=== PATIENT | female | born 1975 | race Caucasian/White ===

== ENCOUNTER 2016-08-12 09:55 | Observation (INO) | payer OTHER ==
[2016-08-12] VITALS (27 sets, daily range): BP systolic 83–124; BP diastolic 52–77; PULSE 75–99; RESP 11–20; Ht 134.6 cm; Wt 58.1 kg
[~2016-08-12] VITALS: Ht 134.6 cm; Wt 58.1 kg
[~2016-08-12 09:55] MED LIST: SOD CHLORIDE 0.9% 1,000 ML IV SCH; VANCOMYCIN 1 GM in NS 250 ML IVPB SCH
[2016-08-12] MEDS ORDERED: morphine 2 MG INJ IV PRN (11:30)
[2016-08-12] MEDS ORDERED: ACETAMINOPHEN 1000MG/100ML IV 100 ML IVPB PRN (11:30)
[2016-08-12] MEDS ORDERED: ONDANSETRON 4 MG INJ IV PRN ×2 (11:30→14:00)
[2016-08-12 11:34] LABS: ADD SCAN DIFF NO
[2016-08-12 11:45] LABS: BASOPHILS % 0.2 % (0.0-2.0); EOSINOPHILS # 0.1 10^3/ul (0.0-0.5); EOSINOPHILS % 0.9 % (0.0-7.0); HEMATOCRIT 40.6 % (37.0-47.0); HEMOGLOBIN 12.9 g/dl (12.0-16.0); LYMPHOCYTES # 2.1 10^3/ul (0.8-2.9); LYMPHOCYTES % 23.1 % (15.0-51.0); MEAN CORPUSCULAR HEMOGLOBIN 23.5 pg (29.0-33.0); MEAN CORPUSCULAR HGB CONC 31.8 g/dl (32.0-37.0); MEAN CORPUSCULAR VOLUME 74.1 fl (82.0-101.0); MONOCYTE # 0.5 10^3/ul (0.3-0.9); MONOCYTES % 5.5 % (0.0-11.0); NEUTROPHIL # 6.5 10^3/ul (1.6-7.5); PLATELET COUNT 270 10^3/UL (140-415); RED BLOOD COUNT 5.48 10^6/ul (4.20-5.40); RED CELL DISTRIBUTION WIDTH 13.4 % (11.5-14.5); WHITE BLOOD COUNT 9.3 10^3/ul (4.8-10.8)
[2016-08-12 12:03] LABS: ALBUMIN 4.6 g/dl (3.3-4.9); ALBUMIN/GLOBULIN RATIO 1.39; BILIRUBIN,INDIRECT 0.4 mg/dl (0-1.1); BILIRUBIN,TOTAL 0.4 mg/dl (0.2-1.3); TOTAL PROTEIN 7.9 g/dl (6.1-8.1)
[2016-08-12 12:23] LABS: INR 1.01; PROTIME 13.3 Sec (12.2-14.2)
[2016-08-12 12:28] LABS: CALCIUM 9.1 mg/dl (8.4-10.2); CREATININE 0.56 mg/dl (0.44-1.00); POTASSIUM 3.7 mmol/L (3.5-5.1)
[2016-08-12 12:36] LABS: PARTIAL THROMBOPLASTIN TIME 27.8 Sec (25.0-35.0)
[2016-08-12] MEDS ORDERED: ISOSULFAN BLUE 1% 5 ML INJ SC ONE ×2 (12:59→13:56)
[2016-08-12] MEDS ORDERED: PROPOFOL 20 ML ONE (13:35)
[2016-08-12] MEDS ORDERED: MIDAZOLAM 1 MG/ML 2 ML INJ ONE (13:35)
[2016-08-12] MEDS ORDERED: ONDANSETRON 4 MG INJ ONE (13:47)
[2016-08-12] MEDS ORDERED: DEXAMETHASONE 4 MG/ML 1 ML INJ ONE (13:47)
[2016-08-12] MEDS ORDERED: FAMOTIDINE 20 MG INJ ONE (13:47)
[2016-08-12] MEDS ORDERED: PROCHLORPERAZINE 10 MG INJ IV PRN (14:00)
[2016-08-12] MEDS ORDERED: HYDROmorphONE (0.2 MG/ML) 10ML SYG IV PRN (14:00)
[2016-08-12] MEDS ORDERED: LIDOCAINE 1% (MDV) 20 ML INJ ONE (14:00)
[2016-08-12] MEDS ORDERED: DIPHENHYDRAMINE 50 MG INJ IV PRN (14:00)
[2016-08-12] MEDS ORDERED: MEPERIDINE 25 MG INJ IV PRN (14:00)
[2016-08-12] MEDS: HYDROmorphONE (0.2 MG/ML) 10ML SYG IV PRN ×3 (15:36→16:00)
--- NOTE | 2016-08-12 16:20 | OPR ---
DATE OF OPERATION: 08/12/2016 PREOPERATIVE DIAGNOSIS: Invasive cancer, left breast. POSTOPERATIVE DIAGNOSIS: Invasive cancer, left breast. OPERATION PERFORMED: Left partial mastectomy and axillary dissection utilizing sentinel lymph node technique. ANESTHESIA: General. ANESTHESIOLOGIST: BARBIE MELGAR DO. SURGEON: Maury Macario MD ENERGY TRADER: J Carlos Garcia MD INDICATIONS FOR PROCEDURE: The patient is an unfortunate 41-year-old female who presented with a re latively large mass at 7 o'clock in location of her left breast. Workup including biopsy confirmed an invasive cancer. She was counseled as to the risks versus benefits of left partial mastectomy an d axillary dissection utilizing sentinel lymph node techniques. She consented and was scheduled for surgery. DESCRIPTION OF PROCEDURE: The patient was brought to the operating theater, placed under general en dotracheal tube anesthesia. The left breast and axillary region was prepped and draped in usual radha rile fashion. Approximately 4 mL of 1% Lymphazurin blue dye was then injected peritumorally. The b reast was gently massaged for approximately 12 minutes. Subsequently, a 4 cm incision was made in t he left axillary hairline and subcutaneous tissue was dissected with cautery down through the clavip ectoral fascia. Dye-stained lymphatic was identified and traced to a partially blue stained sentine l node. Dr. Macario identified several other nodes in this area that were somewhat enlarged. Therefo re, decision was made to proceed with level dissection with blunt dissection along the chest wall. The long thoracic nerve was identified and kept out of harm's way. More superiorly, the axillary ve in was identified and dissected from medial to lateral and kept out of harm's way. Thoracodorsal ne urovascular bundle was also identified and kept out of harm's way. Node bearing tissue between the long thoracic nerve and the thoracodorsal nerves was then resected using the LigaSure device. Final connective tissue attachments were then transected with cautery. Specimen was evaluated by attendi ng pathologist, Dr. Rui Lees. He evaluated the sentinel nodes. There was no definite eviden ce of metastatic disease. Therefore, decision was made to not take additional nodes. Dr. Macario pa lpated the axilla and there were no suspicious nodes left. The wound was irrigated. Minimal bleedi ng was controlled with cautery and then a #10 flat Davis-Portillo drain was brought through the left mid axillary line, cut to size and laid within the axilla. It was secured in place with 2-0 nylon s uture in standard fashion. The skin was then reapproximated with 4-0 Vicryl suture in subcuticular fashion. Attention was then directed to performing the partial mastectomy. A periareolar incision was made f rom approximately the 4 o'clock location through the 7 o'clock location to the 10 o'clock location w ith 15 blade scalpel. Subcutaneous tissue was dissected with cautery. The skin edges were then hamlet vated with skin hooks and wide circumferential dissection of the tissue associated with the palpable mass took place, taking great care to ensure adequate margin. The specimen was removed and sent fo permanent pathologic analysis. The wound was then irrigated. Minimal bleeding was controlled wit h cautery. Skin was reapproximated with a deep dermal layer of 4-0 Vicryl sutures in interrupted fa shion, followed by final skin approximation with 5-0 PDS suture in subcuticular fashion. Dermabond was then applied to both wounds. The patient tolerated procedure well. Estimated blood loss was 30 mL. There were no complications and the patient was transported in stable condition to the recover y room. Dictated By: MAURY GONZALEZ/NEVIN Conf#: [id number] DID#: [id number]
--- NOTE | 2016-08-12 17:03 | HP ---
DATE OF ADMISSION: 08/12/2016 HISTORY OF PRESENT ILLNESS: The patient is a 41-year-old female who was diagnosed with invasive dre aidan carcinoma of the left breast which initially revealed breast mass with a 1.8 cm mass seen in the inferior left breast with subsequent biopsy which revealed invasive cancer. The patient was evalua chery by Dr. Macario in general surgery consultation. Patient was brought to the hospital and underwent left partial mastectomy with axillary dissection utilizing sentinel lymph node technique. Postoper atively, the patient experienced mild dizziness and moderate pain and the patient will be admitted f or further evaluation and management. PAST MEDICAL HISTORY: Positive for anxiety. Patient denies any other medical problems. PAST SURGICAL HISTORY: Status post cholecystectomy. FAMILY HISTORY: Patient denies any family history of breast or gynecological cancer. SOCIAL HISTORY: Patient lives at home with her family. The patient denies any tobacco use, denies any alcohol use, denies any illicit drug use. ALLERGIES: THE PATIENT IS ALLERGIC TO PENICILLIN AND ASPIRIN. HOME MEDICATIONS: No active scripts. REVIEW OF SYSTEMS: A 12-point review of systems is negative unless what mentioned in the HPI. PHYSICAL ASSESSMENT GENERAL: Well-developed, well-nourished female in no acute distress. VITAL SIGNS: Temperature is 98.9, pulse is 96, blood pressure is 111/68, respiratory rate 16, oxyge n saturation 99% on 2 liters nasal cannula. HEENT: Head is atraumatic, normocephalic. Pupils equal, round, reactive to light and accommodation . Oral mucosa is pink and moist. NECK: Supple, no cervical lymphadenopathy, no thyromegaly. CHEST: Lungs clear bilaterally. There is no rhonchi, wheezes results noted. NEUROLOGIC: Patient is status post surgery with a dry, clean and intact dressing. CARDIOVASCULAR: Normal S1, S2. No murmurs, gallops, clicks, rubs noted. ABDOMEN: Round, soft, nondistended, nontender. Bowel sounds present. No guarding, no rebound tend erness. EXTREMITIES: No edema, clubbing, cyanosis. Pulses equal bilaterally 2+. SKIN: There is no rash, petechiae noted. NEUROLOGICAL: The patient is awake, alert and oriented x3. No focal deficits noted. LABORATORY DATA: On admission, CBC: White blood cells 9.3, hemoglobin 12.9, hematocrit 40.6, plate lets 270. Chemistry: Sodium is 142, potassium 3.7, chloride 108, carbon dioxide 25, anion gap 13, BUN is 11, creatinine 0.56, pulse 84. ASSESSMENT AND PLAN: Invasive cancer of the left breast status post left partial mastectomy and lym ph node dissection utilizing sentinel lymph node technique. Continue Tylenol and morphine p.r.n. fo r pain, Zofran p.r.n. for nausea. Continue IV fluids and empiric antibiotics. Will continue sequen tial compression device for deep venous thrombosis prophylaxis. Continue surgical recommendations. Monitor electrolytes. Continue incentive spirometer q.1h. while patient is awake. Further recomme ndations based on clinical course. Plan of care discussed with Dr. Meadows. Dictated By: KEL THOMAS MACHINE BANDER AND CELLOPHANER HELPER for PATRICIA MEADOWS MD SR/NTS Conf#: [id number] DID#: [id number]
[2016-08-12] MEDS: D5W-0.45 NACL + KCL 20 MEQ 1,000 ML IV SCH (19:22)
[2016-08-13] MEDS: D5W-0.45 NACL + KCL 20 MEQ 1,000 ML IV SCH ×2 (02:28→13:11)
[2016-08-13 07:42] LABS: ADD SCAN DIFF NO
[2016-08-13 07:48] LABS: BASOPHILS % 0.1 % (0.0-2.0); HEMATOCRIT 37.4 % (37.0-47.0); LYMPHOCYTES # 1.2 10^3/ul (0.8-2.9); LYMPHOCYTES % 9.7 % (15.0-51.0); MEAN CORPUSCULAR HEMOGLOBIN 24.3 pg (29.0-33.0); MEAN CORPUSCULAR HGB CONC 32.1 g/dl (32.0-37.0); MEAN CORPUSCULAR VOLUME 75.7 fl (82.0-101.0); MEAN PLATELET VOLUME 9.6 fl (7.4-10.4); MONOCYTE # 0.9 10^3/ul (0.3-0.9); MONOCYTES % 6.8 % (0.0-11.0); NEUTROPHIL # 10.4 10^3/ul (1.6-7.5); PLATELET COUNT 232 10^3/UL (140-415); RED BLOOD COUNT 4.94 10^6/ul (4.20-5.40); RED CELL DISTRIBUTION WIDTH 14.2 % (11.5-14.5); WHITE BLOOD COUNT 12.5 10^3/ul (4.8-10.8)
[2016-08-13 08:26] LABS: CALCIUM 8.8 mg/dl (8.4-10.2); CREATININE 0.53 mg/dl (0.44-1.00); POTASSIUM 3.8 mmol/L (3.5-5.1)
[2016-08-13 08:52] VITALS: BP 83/50; RESP 18
[2016-08-13 09:30] VITALS: BP 96/52; PULSE 88; RESP 18
[2016-08-13] MEDS: HYDROCODONE/APAP (5/325) TAB PO PRN ×2 (13:06→17:38)
[2016-08-13 13:37] VITALS: BP 86/51; PULSE 78; RESP 20
[2016-08-13 14:30] VITALS: BP 86/51; PULSE 16; RESP 16
[2016-08-13] MEDS ORDERED: HYDR-3498 PO (18:02)
--- NOTE | 2016-08-14 07:21 | PN ---
DATE: 08/13/2016 SUBJECTIVE: Status post left partial mastectomy with axillary dissection. No complaint. OBJECTIVE: VITAL SIGNS: Temperature 98, ____, respiratory rate 20, ____ 86/51 and 96/52 blood pressure, satura tion 97% room air. GENERAL: Patient is alert, awake, oriented, no dizziness. Sitting on the side of the bed. Davis-Portillo drain is from the axillary incision line; 40 mL past 24 hours and it is serosanguineo us. ASSESSMENT AND PLAN: The patient is status post left partial mastectomy with axillary dissection, stable. Tolerating diet. Moves left arm and hand. Davis-Portillo drain. no bloody drainage but ser osanguineous 40 mL per 24 hours. The patient can be discharged home to be followed in the office by Dr. Macario. Instructions will be given to the patient. The care of the Davis-Portillo, how to man age it and how to record it and patient to call Dr. Macario' office to be seen in his office next week . Dictated By: FALLON WAGNER/NEVIN Conf#: [id number] DID#: [id number]
--- NOTE | 2016-08-19 01:24 | DS ---
DATE OF ADMISSION: 08/13/2016 DATE OF DISCHARGE: 08/13/2016 FINAL DIAGNOSIS: Invasive cancer of the left breast, status post left partial mastectomy and lymph node dissection utilizing sentinel lymph node technique. HOSPITAL COURSE: The patient is a 41-year-old female who is diagnosed with invasive cancer of the l eft breast. The patient was evaluated by Dr. Macario in general surgery consultation. The patient wa s brought to the hospital and underwent left partial mastectomy and lymph node dissection by Dr. Farrah baugh. The patient experienced mild dizziness and moderate pain, and the [facility] was [facility] and management. The patient was given Dilaudid and Tylenol for pain and Zofran p.r.n . for nausea. The patient's condition gradually improved, and the patient was able to get out of be d and tolerate a diet well. The patient denied any dizziness, pain was well controlled, and patient was discharged home. CONDITION ON DISCHARGE: Hemodynamically stable. ACTIVITY: As patient tolerates. DIET: Regular diet. DISCHARGE MEDICATIONS: The patient was given prescription for [place] p.r.n. for pain. FOLLOWUP: The patient is instructed to follow up with Dr. Macario in postoperative appointment in [address] [place]. Interdisciplinary plan of care was established for this patient. Plan of care was discussed with Dr Lola Martínez. Dictated By: KEL THOMAS FITTER PLACER for PATRICIA MARTÍNEZ MD, SR/NTS Conf#: [id number] DID#: [id number]
== END 2016-08-13 18:45 | disposition home or self-care (01) ==
LOC: SDS 09:55 → MS1 21:50 → SDS 08-13 13:13 → MS1 08-13 13:14
PROVIDERS: ADMIT Surgery Surgical Oncology; ATTEND Surgery Surgical Oncology
DX: C50.912 Malignant neoplasm of unspecified site of left female breast (principal); C77.3 Secondary and unspecified malignant neoplasm of axilla and upper limb lymph nodes; Z88.0 Allergy status to penicillin; Z88.6 Allergy status to analgesic agent; F41.9 Anxiety disorder, unspecified; Z90.49 Acquired absence of other specified parts of digestive tract
CPT/HCPCS: 19301; 38525; 38900; 80048; 80053; 84703; 85025; 85610; 85730; 88307; 96361; 96374; 96375; J0131; J1100; J1170; J2250; J2405; J3370; J3480; Z7500; Z7512; Z7610; G0378; Q9968

== ENCOUNTER 2016-08-14 19:36 | Emergency (ER) | payer OTHER ==
[~2016-08-14] VITALS: Ht 162.6 cm; Wt 60.5 kg
[~2016-08-14 19:36] MED LIST changes: +HYDR-3498 PO; -SOD CHLORIDE 0.9% 1,000 ML IV SCH; -VANCOMYCIN 1 GM in NS 250 ML IVPB SCH
[2016-08-14 19:48] VITALS: Ht 162.6 cm; Wt 60.5 kg
[2016-08-14] MEDS ORDERED: SOD CHLORIDE 0.9% 1,000 ML IV STA (20:12)
[2016-08-14] MEDS ORDERED: ONDANSETRON 4 MG INJ IV STA (20:12)
[2016-08-14] MEDS ORDERED: morphine 4 MG/ML VIAL IV STA (20:12)
--- NOTE | 2016-08-14 20:40 | ERD ---
ER Documentation Chief Complaint Date/Time DATE: 08/14/16 TIME: 20:29 Chief Complaint pain surgical site left breast, sp mastectomy left breast 2 days ago HPI 41-year-old female presents here in emergency department for complaints of breast pain after partial mastectomy done 2 days ago, patient was discharged yesterday, today she is in severe pain, 8/10 scale, noted some particles coming out on her Davis-Portillo drainage. Patient denies any fever or chills. Patient denies any discharge coming from the wound. ROS All systems reviewed and are negative except as per history of present illness. Medications Home Meds Active Scripts Hydrocodone Bit-Acetaminophen (Hydrocodone Bit-APAP) 5-325MG Tablet, 1 TAB PO Q4H Y for MODERATE PAIN LEVEL 4-6, #30 TAB Prov:PATRICIA MARTÍNEZ MD 08/13/16 Allergies Allergies: Coded Allergies: Penicillins (Verified Allergy, Unknown, RASH, 08/12/16) aspirin (Verified Allergy, Unknown, RASH, 08/12/16) PMhx/Soc Medical and Surgical Hx: pt denies Medical Hx History of Surgery: Yes (gallbladder, tubal ligation, left breast partial mastectomy) Hx Miscellaneous Medical Probl: Yes (breast lump) Hx Alcohol Use: No Hx Substance Use: No Hx Tobacco Use: No FmHx Family History: No coronary disease, No diabetes, No other Physical Exam Vitals Vital Signs Date Time Temp Pulse Resp B/P Pulse Ox O2 Delivery O2 Flow Rate FiO2 08/14/16 20:14 99.6 08/14/16 19:48 98.5 68 20 130/90 98 Physical Exam GENERAL: The patient is well developed and appropriate for usual state of health, in no apparent distress. CHEST: Clear to auscultation bilaterally. There are no rales, wheezes or rhonchi. Noted draining Davis Ayush drainage in the left breast area with serosanguineous discharge. No redness or swelling in the breast area, the Davis-Portillo drainage in place. HEART: Regular rate and rhythm. No murmurs, clicks, rubs or gallops. No S3 or S4. ABDOMEN: Soft, nontender and nondistended. Good bowel sounds. No rebound or guarding. No gross peritonitis. No gross organomegaly or masses. No Farnsworth sign or McBurney point tenderness. BACK: No midline or flank tenderness. EXTREMITIES: Equal pulses bilaterally. There is no peripheral clubbing, cyanosis or edema. No focal swelling or erythema. Full range of motion. Grossly neurovascularly intact. NEURO: Alert and oriented. Cranial nerves 2-12 intact. Motor strength in all 4 extremities with 5/5 strength. Sensation grossly intact. Normal speech and gait. SKIN: There is no apparent rash or petechia. The skin is warm and dry. HEMATOLOGIC AND LYMPHATIC: There is no evidence of excessive bruising or lymphedema. No gross cervical, axillary, or inguinal lymphadenopathy. Result Diagram: 08/14/16202708/14/162029 Results 24 hrs Laboratory Tests Test 08/14/16 20:05 08/14/16 20:28 08/14/16 20:30 Urine Color LT. YELLOW Urine Clarity CLEAR Urine pH 5.5 Urine Specific Wiggins <=1.005 Urine Ketones NEGATIVE Urine Nitrite NEGATIVE Urine Bilirubin NEGATIVE Urine Urobilinogen 0.2 E.U./dL Urine Leukocyte Esterase NEGATIVE Urine Hemoglobin NEGATIVE Urine Glucose NEGATIVE% Urine Total Protein NEGATIVE White Blood Count 9.410^3/ul Red Blood Count 5.2810^6/ul Hemoglobin 13.0g/dl Hematocrit 40.2% Mean Corpuscular Volume 76.1fl Mean Corpuscular Hemoglobin 24.6pg Mean Corpuscular Hemoglobin Concent 32.3g/dl Red Cell Distribution Width 14.0% Platelet Count 03084^3/UL Mean Platelet Volume 10.0fl Neutrophils % 63.4% Lymphocytes % 28.0% Monocytes % 6.7% Eosinophils % 1.2% Basophils % 0.4% Nucleated Red Blood Cells % 0.0/100WBC Neutrophils # 5.910^3/ul Lymphocytes # 2.610^3/ul Monocytes # 0.610^3/ul Eosinophils # 0.110^3/ul Basophils # 0.010^3/ul Nucleated Red Blood Cells # 0.010^3/ul Sodium Level 143mmol/L Potassium Level 4.0mmol/L Chloride Level 106mmol/L Carbon Dioxide Level 27mmol/L Anion Gap 14 Blood Urea Nitrogen 11mg/dl Creatinine 0.61mg/dl Glucose Level 84mg/dl Calcium Level 9.4mg/dl Total Bilirubin 0.1mg/dl Direct Bilirubin 0.00mg/dl Indirect Bilirubin 0.1mg/dl Aspartate Amino Transf (AST/SGOT) 26IU/L Alanine Aminotransferase (ALT/SGPT) 44IU/L Alkaline Phosphatase 103IU/L Total Protein 7.6g/dl Albumin 4.5g/dl Globulin 3.10g/dl Albumin/Globulin Ratio 1.45 Current Medications Medications (Trade) Dose Ordered Sig/Usman Route PRN Reason Start Time Stop Time Status Last Admin Dose Admin Sodium Chloride (NS) 1,000 ml @ 1,000 mls/hr Q1H STAT IV 08/14/16 20:12 08/14/16 21:11 DC 08/14/16 20:38 Morphine Sulfate (morphine) 4 mg ONCE STAT IV 08/14/16 20:12 08/14/16 20:13 DC 08/14/16 20:38 Ondansetron HCl (Zofran Inj) 4 mg ONCE STAT IV 08/14/16 20:12 08/14/16 20:13 DC 08/14/16 20:39 Patient was given medication for pain here in emergency department, after treatment, patient verbalized feeling much better. Patient's pain is improved. Patient was given Zofran here in the emergency department. After treatment, patient was able to tolerate po fluids here in the emergency department without any vomiting. There is no signs and symptoms of dehydration. Normal saline IV bolus was given here in emergency department for rehydration, patient tolerated IV fluids. Discussed This case with patient's surgeon, Dr. Macario, at this time, no symptoms of infection, incision site does not appear to be infected, no cellulitis, he recommended to see patient in the morning, patient has appointment with him in the morning. At this time no leukocytosis, no bandemia. Patient's pain is controlled. Procedures/MDM Medical decision making: Patient's pain was likely from postoperative pain. Patient is medicated for pain here in emergency department, as per discussion with her surgeon, Dr. Macario, no other medications for pain will be given at this time, he will see the patient in the morning. No symptoms of any infection. no leukocytosis, no bandemia. Patient appears well and is hemodynamically stable. I discussed this with the patient, greater than at this time, will go to appointment tomorrow. Patient was advised to return to emergency department for high fever, or any other worsening symptoms. Otherwise , patient is advised to follow up with surgeon as per appointment tomorrow. Departure Diagnosis: Primary Impression: Postoperative pain Condition: Stable Patient Instructions: Managing Post-Op Pain at Home: Non-Medication Relief DEA BRANHAM NP Aug 14, 2016 20:39
[2016-08-14 20:55] LABS: ADD UMIC NO; URINE BILIRUBIN (Dip) NEGATIVE (NEGATIVE); URINE BLOOD (Dip) NEGATIVE (NEGATIVE); URINE COLOR LT. YELLOW (YELLOW); URINE GLUCOSE (Dip) NEGATIVE (NEGATIVE); URINE KETONES (Dip) NEGATIVE (NEGATIVE); URINE LEUKOCYTE ESTERASE (Dip) NEGATIVE (NEGATIVE); URINE NITRITE (Dip) NEGATIVE (NEGATIVE); URINE TOTAL PROTEIN (Dip) NEGATIVE (NEGATIVE); URINE UROBILINOGEN (Dip) 0.2 E.U./dL (0.1-1.0)
[2016-08-14 21:07] LABS: ADD SCAN DIFF NO
[2016-08-14 21:08] LABS: BASOPHILS % 0.4 % (0.0-2.0); EOSINOPHILS # 0.1 10^3/ul (0.0-0.5); EOSINOPHILS % 1.2 % (0.0-7.0); HEMATOCRIT 40.2 % (37.0-47.0); LYMPHOCYTES # 2.6 10^3/ul (0.8-2.9); MEAN CORPUSCULAR HEMOGLOBIN 24.6 pg (29.0-33.0); MEAN CORPUSCULAR HGB CONC 32.3 g/dl (32.0-37.0); MEAN CORPUSCULAR VOLUME 76.1 fl (82.0-101.0); MONOCYTE # 0.6 10^3/ul (0.3-0.9); MONOCYTES % 6.7 % (0.0-11.0); NEUTROPHIL # 5.9 10^3/ul (1.6-7.5); NEUTROPHILS % 63.4 % (39.0-77.0); PLATELET COUNT 260 10^3/UL (140-415); RED BLOOD COUNT 5.28 10^6/ul (4.20-5.40); WHITE BLOOD COUNT 9.4 10^3/ul (4.8-10.8)
[2016-08-14 21:26] LABS: ALBUMIN 4.5 g/dl (3.3-4.9); ALBUMIN/GLOBULIN RATIO 1.45; BILIRUBIN,INDIRECT 0.1 mg/dl (0-1.1); BILIRUBIN,TOTAL 0.1 mg/dl (0.2-1.3); CALCIUM 9.4 mg/dl (8.4-10.2); CREATININE 0.61 mg/dl (0.44-1.00); TOTAL PROTEIN 7.6 g/dl (6.1-8.1)
[2016-08-14 22:33] VITALS: BP 102/64; PULSE 70; RESP 20; TEMP 97.5
== END 2016-08-14 22:34 | disposition home or self-care (01) ==
LOC: FTE 19:36
DX: G89.18 Other acute postprocedural pain (principal)
CPT/HCPCS: 36415; 80053; 81003; 85025; 96374; 96375; J2270; J2405; J7030; Z7502

== ENCOUNTER 2016-08-25 21:53 | Emergency (ER) | payer OTHER ==
[~2016-08-25] VITALS: Ht 134.6 cm; Wt 60.0 kg
[2016-08-25 21:56] VITALS: Ht 134.6 cm; Wt 60.0 kg
[2016-08-25] MEDS ORDERED: SOD CHLORIDE 0.9% 100 ML ONE (23:05)
[2016-08-25] MEDS ORDERED: IOHEXOL 100 ML ONE (23:05)
--- NOTE | 2016-08-25 23:08 | ERD ---
ER Documentation Chief Complaint Date/Time DATE: 08/25/16 TIME: 23:02 Chief Complaint s/p partial left mastectomy 08/12/16, c/o pain left breast/back HPI 41-year-old female with history of breast cancer and partial left mastectomy which was performed on 08/12/2016 presents to the emergency department complaining of a sudden increase of left-sided breast pain, diffuse bilateral upper back pain, chest pressure, shortness of breath since 8 PM this evening. Patient currently rates her pain as a 9 out of 10 constant sharp pain. patient states she was gradually improving and then experienced sudden onset symptoms. She also notes some clear discharge from the drainage tube located on her left lateral chest. Patient denies any fever, chills, nausea, vomiting, diarrhea, headache. She states she has a follow-up appointment with her surgeon scheduled for Friday of this week. ROS All systems reviewed and are negative except as per history of present illness. Medications Home Meds Active Scripts Docusate Sodium* (Colace*) 100 Mg Capsule, 100 MG PO BID, #60 CAP Prov:KEERTHI DONIS PA-C 08/26/16 Oxycodone HCl/Acetaminophen (Percocet 5-325 mg Tablet) 1 Each Tablet, 1 EACH PO Q8, #20 TAB Prov:KEERTHI DONIS PA-C 08/26/16 Hydrocodone Bit-Acetaminophen (Hydrocodone Bit-APAP) 5-325MG Tablet, 1 TAB PO Q4H Y for MODERATE PAIN LEVEL 4-6, #30 TAB Prov:PATRICIA MARTÍNEZ MD 08/13/16 Allergies Allergies: Coded Allergies: Penicillins (Verified Allergy, Unknown, RASH, 08/25/16) aspirin (Verified Allergy, Unknown, RASH, 08/25/16) PMhx/Soc History of Surgery: Yes (gallbladder, tubal ligation, left breast partial mastectomy08/12/16) Anesthesia Reaction: No Hx Neurological Disorder: No Hx Respiratory Disorders: No Hx Cardiac Disorders: No Hx Psychiatric Problems: No Hx Miscellaneous Medical Probl: Yes (breast lump) Hx Alcohol Use: No Hx Substance Use: No Hx Tobacco Use: No Smoking Status: Never smoker Physical Exam Vitals Vital Signs Date Time Temp Pulse Resp B/P Pulse Ox O2 Delivery O2 Flow Rate FiO2 08/26/16 02:13 97.8 68 117/67 99 Room Air 08/25/16 21:56 98.0 86 20 119/76 97 Physical Exam Const: Well-developed, well-nourished, in mild distress Head: Atraumatic Eyes: Normal Conjunctiva ENT: Normal External Ears, Nose and Mouth. Neck: Full range of motion..~ No meningismus. Resp: Drainage tube located at the nipple line of the left lateral chest wall. No active drainage or discharge coming from the insertion site. Patient mildly tender to palpation however no erythema or swelling surrounding the tube. Serous fluid seen in the drainage bag without blood or purulent fluid. clear to auscultation bilaterally Cardio: Regular rate and rhythm, no murmurs Abd: Soft, non tender, non distended. Normal bowel sounds Skin: No petechiae or rashes. No erythema or swelling surrounding the insertion site of the drainage tube. No discharge. Back: No midline or flank tenderness Ext: No cyanosis, or edema Neur: Awake and alert Psych: Normal Mood and Affect Result Diagram: 08/25/168 08/25/162307 Results 24 hrs Laboratory Tests Test 08/25/16 23:08 White Blood Count 8.210^3/ul Red Blood Count 5.0510^6/ul Hemoglobin 12.4g/dl Hematocrit 38.2% Mean Corpuscular Volume 75.6fl Mean Corpuscular Hemoglobin 24.6pg Mean Corpuscular Hemoglobin Concent 32.5g/dl Red Cell Distribution Width 13.7% Platelet Count 01054^3/UL Mean Platelet Volume 9.6fl Neutrophils % 71.8% Lymphocytes % 19.6% Monocytes % 6.7% Eosinophils % 1.3% Basophils % 0.4% Nucleated Red Blood Cells % 0.0/100WBC Neutrophils # 5.910^3/ul Lymphocytes # 1.610^3/ul Monocytes # 0.610^3/ul Eosinophils # 0.110^3/ul Basophils # 0.010^3/ul Nucleated Red Blood Cells # 0.010^3/ul Sodium Level 142mmol/L Potassium Level 3.5mmol/L Chloride Level 106mmol/L Carbon Dioxide Level 26mmol/L Anion Gap 14 Blood Urea Nitrogen 10mg/dl Creatinine 0.61mg/dl Glucose Level 90mg/dl Calcium Level 9.5mg/dl Total Bilirubin 0.1mg/dl Direct Bilirubin 0.00mg/dl Indirect Bilirubin 0.1mg/dl Aspartate Amino Transf (AST/SGOT) 22IU/L Alanine Aminotransferase (ALT/SGPT) 28IU/L Alkaline Phosphatase 103IU/L Troponin I < 0.012ng/ml Total Protein 7.3g/dl Albumin 4.3g/dl Globulin 3.00g/dl Albumin/Globulin Ratio 1.43 Current Medications Medications (Trade) Dose Ordered Sig/Usman Route PRN Reason Start Time Stop Time Status Last Admin Dose Admin IV Flush 10 ml 10 ml STK-MED ONCE .ROUTE 08/25/16 23:05 08/25/16 23:06 DC 08/25/16 23:05 Sodium Chloride 100 ml @ ud STK-MED ONCE .ROUTE 08/25/16 23:05 08/25/16 23:06 DC 08/25/16 23:05 Iohexol (Omnipaque) 100 ml @ ud STK-MED ONCE .ROUTE 08/25/16 23:05 08/25/16 23:06 DC 08/25/16 23:05 Procedures/MDM PROCEDURE: CT angiogram chest. CLINICAL INDICATION: Shortness of breath. TECHNIQUE: CT angiogram of the chest was performed utilizing axial images with reconstructions in sagittal and coronal planes following the intravenous administration of 100 cc Omnipaque 350 contrast. The administered radiation dose is CTDI 14 mGy, DLP 502 mGy-cm. COMPARISON: No pertinent prior examinations are submitted for comparison. FINDINGS: Pulmonary angiogram: The pulmonary arteries are adequately opacified to the level of the segmental pulmonary artery branches. There is minimal respiratory motion artifact. There is no evidence of pulmonary embolus. Aortogram: There is no evidence of aortic dissection or aneurysm. Major branches of the aorta are patent. Chest: A mass and skin thickening are partially seen within the left breast. Save the at the this is a surgical drainage catheter is noted in the left axillary region. A variant, persistent azygos vein is noted. A small hiatal hernia is noted. Healing of the with months there is some minimal atelectasis at the lung bases. There are no focal infiltrates. No pleural effusions are seen. The tracheobronchial tree is unremarkable. There is no mediastinal or hilar adenopathy. The heart is normal in size. No pericardial effusion is seen. Visualized Upper abdomen: Prior cholecystectomy is noted. Osseous structures: Unremarkable. IMPRESSION: No evidence of pulmonary embolus. Is in the small hiatal hernia. Partially visualized left breast mass and skin thickening. Left axillary postoperative changes. RPTAT: HIKT .Jose Alfredo Mendes MD, MD Date Time Electronically viewed and signed by .Jose Alfredo Mendes MD, on 08/26/2016 00:58 .T/ CC: KEERTHI DONIS PA-C This is a 41-year-old female with a history of breast cancer and recent mastectomy who presents to the emergency department for sudden onset left-sided chest pain, trust chest pressure, shortness of breath and sudden increase in pain which began at 8 PM tonight. Physical exam without evidence of infection at the insertion site of the drainage tube. Vital signs reviewed, patient afebrile and non-tachycardic normotensive and non-hypoxic upon arrival. CT angiogram without evidence of pulmonary embolus. There is a small hiatal hernia noted in partially visualized left breast mass skin thickening. Otherwise unremarkable. CBC showed no evidence of systemic infection or severe anemia. CMP showed no evidence of electrolyte abnormalities, severe acidosis, alkalosis , renal failure, or liver disease. Troponin negative EKG: Rate/Rhythm: Normal Sinus Rhythm QRS, ST, T-waves: No changes consistent w/ acute ischemia Impression: No evidence of ischemia or arrhythmia At this time low suspicion for acute coronary syndrome, DVT, PE, or serious bacterial infection from the ROBERT tube at the drainage site. Patient instructed to follow-up with her doctor as scheduled on Friday for follow-up and drain removal. Patient provided with pain medication and all laboratory and imaging results. Patient symptoms likely due to postprocedural inflammation. Based on patient's history of present illness and physical examination the decision was made to discharge. The patient was re-evaluated after ED treatment and stabilizing measures, and symptoms have improved. There is no evidence of life threatening injuries or illnesses at this time. On re-examination, patient resting in no distress, stable vital signs, reports feeling better and safe for discharge with outpatient follow up with PMD in 1-2 days. Patient given return precautions. Departure Diagnosis: Primary Impression: Pain, postoperative, acute Additional Impressions: Chest pain Chest pain type: unspecified Qualified Code: R07.9 - Chest pain, unspecified type Shortness of breath KEERTHI DONIS PA-C Aug 25, 2016 23:08
[2016-08-25 23:19] LABS: ADD SCAN DIFF NO
[2016-08-25 23:21] LABS: BASOPHILS % 0.4 % (0.0-2.0); EOSINOPHILS # 0.1 10^3/ul (0.0-0.5); EOSINOPHILS % 1.3 % (0.0-7.0); HEMATOCRIT 38.2 % (37.0-47.0); HEMOGLOBIN 12.4 g/dl (12.0-16.0); LYMPHOCYTES # 1.6 10^3/ul (0.8-2.9); LYMPHOCYTES % 19.6 % (15.0-51.0); MEAN CORPUSCULAR HEMOGLOBIN 24.6 pg (29.0-33.0); MEAN CORPUSCULAR HGB CONC 32.5 g/dl (32.0-37.0); MEAN CORPUSCULAR VOLUME 75.6 fl (82.0-101.0); MEAN PLATELET VOLUME 9.6 fl (7.4-10.4); MONOCYTE # 0.6 10^3/ul (0.3-0.9); MONOCYTES % 6.7 % (0.0-11.0); NEUTROPHIL # 5.9 10^3/ul (1.6-7.5); NEUTROPHILS % 71.8 % (39.0-77.0); PLATELET COUNT 287 10^3/UL (140-415); RED BLOOD COUNT 5.05 10^6/ul (4.20-5.40); RED CELL DISTRIBUTION WIDTH 13.7 % (11.5-14.5); WHITE BLOOD COUNT 8.2 10^3/ul (4.8-10.8)
[2016-08-25 23:41] LABS: ALBUMIN 4.3 g/dl (3.3-4.9); ALBUMIN/GLOBULIN RATIO 1.43; BILIRUBIN,INDIRECT 0.1 mg/dl (0-1.1); BILIRUBIN,TOTAL 0.1 mg/dl (0.2-1.3); CALCIUM 9.5 mg/dl (8.4-10.2); CREATININE 0.61 mg/dl (0.44-1.00); POTASSIUM 3.5 mmol/L (3.5-5.1); TOTAL PROTEIN 7.3 g/dl (6.1-8.1)
--- NOTE | 2016-08-26 00:59 | RADRPT ---
PROCEDURE: CT angiogram chest. CLINICAL INDICATION: Shortness of breath. TECHNIQUE: CT angiogram of the chest was performed utilizing axial images with reconstructions in sagittal and coronal planes following the intravenous administration of 100 cc Omnipaque 350 contras t. The administered radiation dose is CTDI 14 mGy, DLP 502 mGy-cm. COMPARISON: No pertinent prior examinations are submitted for comparison. FINDINGS: Pulmonary angiogram: The pulmonary arteries are adequately opacified to the level of the segmental pulmonary artery branches. There is minimal respiratory motion artifact. There is no evidence of p ulmonary embolus. Aortogram: There is no evidence of aortic dissection or aneurysm. Major branches of the aorta are patent. Chest: A mass and skin thickening are partially seen within the left breast. Save the at the this is a melissa gical drainage catheter is noted in the left axillary region. A variant, persistent azygos vein is noted. A small hiatal hernia is noted. Healing of the with months there is some minimal atelectasis at the lung bases. There are no focal infiltrates. No pleural effusions are seen. The tracheobronchial tree is unremarkable. There is no mediastinal or hilar adenopathy. The heart is normal in size. No pericardial effusion is seen. Visualized Upper abdomen: Prior cholecystectomy is noted. Osseous structures: Unremarkable. IMPRESSION: No evidence of pulmonary embolus. Is in the small hiatal hernia. Partially visualized left breast mass and skin thickening. Left axillary postoperative changes. RPTAT: HIKT .Jose Alfredo Mendes MD, MD Date Time Electronically viewed and signed by .Jose Alfredo Mendes MD, MD on 08/26/2016 00:58 .T/
[2016-08-26] MEDS ORDERED: OXYC-279 PO (01:33)
[2016-08-26] MEDS ORDERED: DOCU-144 PO (01:33)
[2016-08-26 02:13] VITALS: BP 117/67; PULSE 68; TEMP 97.8
== END 2016-08-26 02:25 | disposition home or self-care (01) ==
LOC: FTE 21:53
DX: G89.18 Other acute postprocedural pain (principal); R07.9 Chest pain, unspecified; R06.02 Shortness of breath
CPT/HCPCS: 71275; 80053; 84484; 85025; 93005; Q9967; Z7610; 36415

== ENCOUNTER 2016-10-18 12:58 | Inpatient (IN) | payer OTHER ==
[~2016-10-18] VITALS: Wt 58.6 kg
[~2016-10-18 12:58] MED LIST changes: +DOCU-144 PO; +OXYC-279 PO
[2016-10-18] MEDS ORDERED: morphine 4 MG/ML VIAL IV STA (13:43)
[2016-10-18] MEDS ORDERED: ONDANSETRON 4 MG INJ IV STA (13:43)
[2016-10-18] MEDS ORDERED: SOD CHLORIDE 0.9% 1,000 ML IV STA (13:43)
[2016-10-18 14:03] LABS: HEMATOCRIT 40.6 % (37.0-47.0); HEMOGLOBIN 13.6 g/dl (12.0-16.0); MEAN CORPUSCULAR HEMOGLOBIN 24.9 pg (29.0-33.0); MEAN CORPUSCULAR HGB CONC 33.5 g/dl (32.0-37.0); MEAN CORPUSCULAR VOLUME 74.4 fl (82.0-101.0); MEAN PLATELET VOLUME 10.5 fl (7.4-10.4); PLATELET COUNT 198 10^3/UL (140-415); RED BLOOD COUNT 5.46 10^6/ul (4.20-5.40); RED CELL DISTRIBUTION WIDTH 13.5 % (11.5-14.5); WHITE BLOOD COUNT 5.4 10^3/ul (4.8-10.8)
[2016-10-18 14:10] LABS: POSITIVE DIFF @See below
[2016-10-18 14:23] LABS: ALBUMIN 4.1 g/dl (3.3-4.9); ALBUMIN/GLOBULIN RATIO 1.2; BILIRUBIN,INDIRECT 0.5 mg/dl (0-1.1); BILIRUBIN,TOTAL 0.5 mg/dl (0.2-1.3); CALCIUM 8.7 mg/dl (8.4-10.2); CREATININE 0.58 mg/dl (0.44-1.00); POTASSIUM 3.7 mmol/L (3.5-5.1); TOTAL PROTEIN 7.5 g/dl (6.1-8.1)
[2016-10-18 14:30] LABS: ANISOCYTOSIS 2+ (0-0); BASOPHILS % (M) 1 % (0-2); ERYTHROBLAST% (NRBC) (M) 1 % (0-0); MICROCYTOSIS 2+ (0-0); MONOCYTES % (M) 1 % (0-11); OVALOCYTES 1+ (0-0); PLATELET ESTIMATE NORMAL; POIKILOCYTOSIS 1+ (0-0); POLYCHROMASIA 1+ (0-0)
[2016-10-18] MEDS ORDERED: ONDA4TAB14 PO (14:58)
--- NOTE | 2016-10-18 14:59 | ERD ---
ER Documentation Chief Complaint Date/Time DATE: 10/18/16 TIME: 14:59 Chief Complaint NAUSEA AND VOMITING WITH HEADACHE AND CHEST PRESSURE FOR 2 DAYS. HPI Patient is a 41-year-old female with breast cancer presents with nausea and vomiting. She had her first chemotherapy on Friday and now has been having continuous vomiting. She has headache as well. She has had no treatment as of yet. She denies fevers. She has diffuse abdominal pain. The symptoms have been constant. Upon review of old medical records this is the patient's third visit since August 2016. Review of the emergency department information exchange system shows visits to 2 separate emergency departments. ROS All systems reviewed and are negative except as per history of present illness. Medications Home Meds Active Scripts Ondansetron (Ondansetron Odt) 4 Mg Tab.rapdis, 4 MG PO Q6H Y for NAUSEA AND/OR VOMITING, #30 TAB Prov:MITCHELL SAMUELS MD 10/18/16 Hydrocodone Bit-Acetaminophen (Hydrocodone Bit-APAP) 5-325MG Tablet, 1 TAB PO Q4H Y for MODERATE PAIN LEVEL 4-6, #30 TAB Prov:PATRICIA MARTÍNEZ MD 08/13/16 Discontinued Scripts Docusate Sodium* (Colace*) 100 Mg Capsule, 100 MG PO BID, #60 CAP Prov:KEERTHI DONIS PA-C 08/26/16 Oxycodone HCl/Acetaminophen (Percocet 5-325 mg Tablet) 1 Each Tablet, 1 EACH PO Q8, #20 TAB Prov:KEERTHI DONIS PA-C 08/26/16 Allergies Allergies: Coded Allergies: Penicillins (Verified Allergy, Unknown, RASH, 10/18/16) aspirin (Verified Allergy, Unknown, RASH, 10/18/16) PMhx/Soc History of Surgery: Yes (gallbladder, tubal ligation, left breast partial mastectomy08/12/16) Anesthesia Reaction: No Hx Neurological Disorder: No Hx Respiratory Disorders: No Hx Cardiac Disorders: No Hx Psychiatric Problems: No Hx Miscellaneous Medical Probl: Yes (breast lump) Hx Alcohol Use: No Hx Substance Use: No Hx Tobacco Use: No Smoking Status: Never smoker FmHx Family History: No diabetes Physical Exam Vitals Vital Signs Date Time Temp Pulse Resp B/P Pulse Ox O2 Delivery O2 Flow Rate FiO2 10/18/16 15:17 98.3 60 18 104/56 100 Room Air 10/18/16 13:02 99.0 71 20 100/71 98 Physical Exam Const: Moderate distress Head: Atraumatic Eyes: Normal Conjunctiva ENT: Normal External Ears, Nose and Mouth. Neck: Full range of motion..~ No meningismus. Resp: Clear to auscultation bilaterally Cardio: Regular rate and rhythm, no murmurs Abd: Soft, diffuse abdominal pain to palpation without rebound or guarding Skin: No petechiae or rashes Back: No midline or flank tenderness Ext: No cyanosis, or edema Neur: Awake and alert Psych: Normal Mood and Affect Result Diagram: 10/18/16 1350 10/18/16 1350 Results 24 hrs Laboratory Tests Test 10/18/16 13:50 10/18/16 15:00 White Blood Count 5.410^3/ul Red Blood Count 5.4610^6/ul Hemoglobin 13.6g/dl Hematocrit 40.6% Mean Corpuscular Volume 74.4fl Mean Corpuscular Hemoglobin 24.9pg Mean Corpuscular Hemoglobin Concent 33.5g/dl Red Cell Distribution Width 13.5% Platelet Count 23576^3/UL Mean Platelet Volume 10.5fl Neutrophils % % Segmented Neutrophils % (Manual) 68% Band Neutrophils % (Manual) 6% Lymphocytes % % Lymphocytes % (Manual) 24% Monocytes % % Monocytes % (Manual) 1% Eosinophils % % Basophils % % Basophils % (Manual) 1% Nucleated Red Blood Cells % 1% Neutrophils # 10^3/ul Neutrophils # (Manual) 3.710^3/ul Band Neutrophils # 0.310^3/ul Absolute Lymphocytes (Manual) 1.210^3/ul Lymphocytes # 10^3/ul Monocytes # 10^3/ul Absolute Monocytes (Manual) 0.010^3/ul Eosinophils # 10^3/ul Basophils # 10^3/ul Basophils # (Manual) 0.010^3/ul Nucleated Red Blood Cells # 10^3/ul Platelet Estimate NORMAL Polychromasia 1+ Poikilocytosis 1+ Anisocytosis 2+ Microcytosis 2+ Ovalocytes 1+ Sodium Level 141mmol/L Potassium Level 3.7mmol/L Chloride Level 102mmol/L Carbon Dioxide Level 26mmol/L Anion Gap 17 Blood Urea Nitrogen 8mg/dl Creatinine 0.58mg/dl Glucose Level 95mg/dl Calcium Level 8.7mg/dl Total Bilirubin 0.5mg/dl Direct Bilirubin 0.00mg/dl Indirect Bilirubin 0.5mg/dl Aspartate Amino Transf (AST/SGOT) 29IU/L Alanine Aminotransferase (ALT/SGPT) 42IU/L Alkaline Phosphatase 95IU/L Total Protein 7.5g/dl Albumin 4.1g/dl Globulin 3.40g/dl Albumin/Globulin Ratio 1.20 Lipase 536U/L Urine Color STRAW Urine Clarity CLEAR Urine pH 8.0 Urine Specific [place] 1.004 Urine Ketones NEGATIVEmg/dL Urine Nitrite NEGATIVEmg/dL Urine Bilirubin NEGATIVEmg/dL Urine Urobilinogen NEGATIVEmg/dL Urine Leukocyte Esterase NEGATIVELeu/ul Urine Hemoglobin NEGATIVEmg/dL Urine Glucose NEGATIVEmg/dL Urine Total Protein NEGATIVEmg/dl Current Medications Medications (Trade) Dose Ordered Sig/Usman Route PRN Reason Start Time Stop Time Status Last Admin Dose Admin Sodium Chloride (NS) 1,000 ml @ 1,000 mls/hr Q1H STAT IV 10/18/16 13:43 10/18/16 14:42 DC 10/18/16 13:49 Morphine Sulfate (morphine) 4 mg ONCE STAT IV 10/18/16 13:43 10/18/16 13:44 DC 10/18/16 13:48 Ondansetron HCl (Zofran Inj) 4 mg ONCE STAT IV 10/18/16 13:43 10/18/16 13:44 DC 10/18/16 13:48 Ondansetron HCl (Zofran Inj) 4 mg BRIDGE ORDER PRN IV NAUSEA AND/OR VOMITING 10/18/16 16:00 10/19/16 15:59 Acetaminophen (Tylenol Tab) 650 mg ER BRIDGE PRN PO MILD PAIN/FEVER 10/18/16 16:00 10/19/16 15:59 Procedures/MDM EKG read by me: Rate/Rhythm: Regular rate and rhythm at a rate of 73 Intervals: Normal Impression: No evidence of ischemia or arrhythmia Patient is a 41-year-old female presents with intractable nausea and vomiting. She also has diffuse abdominal pain. At this point however I doubt appendicitis , cholecystitis, pancreatitis, or bowel obstruction. She has an elevation of her lipase to 500 but this is not 3 times the normal limit and at this point I doubt true pancreatitis. The patient will be admitted to the care of Dr. Gonzalez who is covering for [facility] insurance which the patient has. The patient will be admitted to a medical surgical bed. She was given fluids, Zofran, and morphine. Departure Diagnosis: Primary Impression: Abdominal pain Abdominal location: generalized Qualified Code: R10.84 - Generalized abdominal pain Additional Impression: Nausea and vomiting Vomiting type: unspecified Vomiting Intractability: intractable Qualified Code: R11.2 - Intractable vomiting with nausea, unspecified vomiting type Condition: Fair Patient Instructions: Abdominal Pain, Nausea and Vomiting-Adult Additional Instructions: Llame al doctor MAANA y jing jacob [place] PARA DENTRO DE 1-2 CONSTANTINO.Dgale a la secretaria que nosotros le instruimos hacer esta [place].Avise o llame si jolly condicin se empeora antes de la [place]. Regresa aqui si peor o no mejor. MITCHELL SAMUELS MD Oct 18, 2016 14:59
[2016-10-18 15:17] VITALS: TEMP 98.3
[2016-10-18 15:32] LABS: ADD UMIC NO; UR ASCORBIC ACID NEGATIVE (NEGATIVE); UR BILIRUBIN (Dip) NEGATIVE (NEGATIVE); UR BLOOD (Dip) NEGATIVE (NEGATIVE); UR CLARITY CLEAR (CLEAR); UR COLOR STRAW (YELLOW); UR GLUCOSE (Dip) NEGATIVE (NEGATIVE); UR KETONES (Dip) NEGATIVE (NEGATIVE); UR LEUKOCYTE ESTERASE (Dip) NEGATIVE Leu/ul (NEGATIVE); UR NITRITE (Dip) NEGATIVE (NEGATIVE); UR SPECIFIC GRAVITY (Dip) 1.004 (1.003-1.030); UR TOTAL PROTEIN (Dip) NEGATIVE (NEGATIVE); UR UROBILINOGEN (Dip) NEGATIVE (NEGATIVE)
[2016-10-18] MEDS ORDERED: ACETAMINOPHEN 325 MG TAB PO PRN (16:00)
[2016-10-18] MEDS ORDERED: ONDANSETRON 4 MG INJ IV PRN (16:00)
[2016-10-18] MEDS ORDERED: METOCLOPRAMIDE 10 MG INJ IV PRN (17:00)
[2016-10-18] MEDS ORDERED: DOCUSATE SODIUM 100 MG CAP PO PRN (17:00)
[2016-10-18] MEDS ORDERED: morphine 2 MG INJ IV PRN (17:00)
[2016-10-18] MEDS ORDERED: ZOLPIDEM 5 MG TAB PO PRN (17:00)
[2016-10-18] MEDS ORDERED: NACL 0.9% 3 ML SYG IV SCH (17:00)
[2016-10-18] MEDS ORDERED: HYDROCODONE/APAP (5/325) TAB PO PRN (17:00)
--- NOTE | 2016-10-18 18:09 | HP ---
DATE OF ADMISSION: 10/18/2016 REASON FOR ADMISSION: Abdominal pain, nausea, vomiting, and diarrhea. HISTORY OF PRESENT ILLNESS: This is a 41-year-old woman, who was diagnosed with ductal carcinoma of the left breast, status post left partial mastectomy in August,, who was started on chemotherapy on 2016, who presented to the emergency department complaining of abdominal pain, nausea, vomiting, and diarrhea for the past 2 days. According to the patient, she had received her chemotherapy on October [address] Tolentino, and post discharge she was given a prescription for zofran and also Ativan for anxiety, however, the patient said that she was having epigastric pain intermittently on and off. Since yesterday the abdominal pain has been getting worse. She is also having episodes of vomiting. She was also noted to have diarrhea 4 episodes this morning. Denies any fevers and chills. The patient has been unable to take anything p.o. since this morning. She never had these episodes before. In the ED, the patient was given MS 1 L morphine 4 mg, Zofran 4 mg without improvement in the pain, and was then admitted for further management. PAST MEDICAL HISTORY: 1. Left breast CA, status post partial mastectomy with lymph node dissection. 2. Anxiety. ALLERGIES: PENICILLIN AND ASPIRIN. PAST SURGICAL HISTORY: Significant for cholecystectomy and tubal ligation. MEDICATIONS: Medications at home, 1. Zofran. 2. Ativan. SOCIAL HISTORY: Denies any history of smoking, alcohol, any drug use. FAMILY HISTORY: Denies any history of cancer in the family. REVIEW OF SYSTEMS: As mentioned above. Positive also for headaches. Denies any chest pain, any shortness of breath. Denies any urinary symptoms.Denies any hematemesis/meera/BRBPR Denies any focal neuro deficits PHYSICAL EXAMINATION: VITAL SIGNS: Temperature 98.3, heart rate 60, respirations 18, blood pressure 104/56, saturating 100 percent on room air. GENERAL: Patient is awake, alert, oriented times 4, in mild distress secondary to pain. HEENT: Head is atraumatic, normocephalic. Pupils equal, round, and reactive to light and accommodation. NECK: Supple. No JVD. LUNGS: Clear to auscultation bilaterally. CARDIOVASCULAR: Normal S1, S2. ABDOMEN: Soft, however, some tenderness present in the epigastric region. Bowel sounds present. No guarding noted or bowel tenderness. EXTREMITIES: No clubbing, cyanosis, or edema. SKIN: The patient has surgical scar in the left breast and also in the left armpit. NEUROLOGIC: Patient is awake, alert, oriented times 3. Nonfocal. LABORATORY DATA: Sodium 141, potassium 3.7, chloride 102, bicarbonate 26, BUN 8, creatinine 0.58, glucose 95. LFTs within normal limits. Lipase was mildly elevated at 536. White count 5.4, hemoglobin 13.6, platelet count 198. ASSESSMENT: This is a 41-year-old woman presenting with, 1. Abdominal pain, nausea, vomiting, likely status post chemotherapy on 10/2016 likely secondary to chemotherapy. The patient also had elevated lipase that could also contribute to the abdominal pain and could have mild pancreatitis, however, liver function tests are within normal limits. Denies any history of gastritis. 2. History of left breast carcinoma, status post partial mastectomy with lymph node dissection. 3. History of anxiety. PLAN: At this period of time, the patient is admitted to the med/surg unit. Will keep the patient n.p.o. Will start the patient on IV fluids and PPI . The patient will also be given Zofran around the clock for nausea. We will also communicate to the oncologist regarding the patient. LFTs are normal. Will also give GI prophylaxis. The rest of the treatment will depend on the patient's hospitalization course. Dictated By: MD ANDREW Valdez/chaka/mt /Document#: [id number] MTDD
[2016-10-18 18:33] VITALS: BP 104/70; PULSE 69; RESP 18
[2016-10-18 19:25] VITALS: BP 102/68; RESP 19
[2016-10-18] MEDS: DEXTROSE 5%-0.45% NACL 1,000 ML IV SCH (20:40)
[2016-10-18] MEDS: ONDANSETRON 4 MG INJ IV PRN (20:41)
[2016-10-18] MEDS: FAMOTIDINE 20 MG TAB PO SCH (20:42)
[2016-10-19] MEDS: DEXTROSE 5%-0.45% NACL 1,000 ML IV SCH ×3 (02:48→16:06)
[2016-10-19 03:44] VITALS: BP 94/63; RESP 17
[2016-10-19 05:01] LABS: HEMATOCRIT 39.7 % (37.0-47.0); HEMOGLOBIN 12.5 g/dl (12.0-16.0); MEAN CORPUSCULAR HGB CONC 31.5 g/dl (32.0-37.0); MEAN CORPUSCULAR VOLUME 76.3 fl (82.0-101.0); MEAN PLATELET VOLUME 10.8 fl (7.4-10.4); PLATELET COUNT 181 10^3/UL (140-415); RED CELL DISTRIBUTION WIDTH 13.7 % (11.5-14.5); WHITE BLOOD COUNT 4.9 10^3/ul (4.8-10.8)
[2016-10-19 05:15] LABS: ALBUMIN 3.5 g/dl (3.3-4.9); ALBUMIN/GLOBULIN RATIO 1.16; CALCIUM 8.5 mg/dl (8.4-10.2); CREATININE 0.51 mg/dl (0.44-1.00); MAGNESIUM 2.1 mg/dl (1.7-2.5); PHOSPHORUS 3.2 mg/dl (2.5-4.9); TOTAL PROTEIN 6.5 g/dl (6.1-8.1)
[2016-10-19 07:46] VITALS: BP 107/68; RESP 18
[2016-10-19] MEDS: FAMOTIDINE 20 MG TAB PO SCH ×3 (09:00→20:25)
[2016-10-19] MEDS: ONDANSETRON 4 MG INJ IV PRN (09:20)
[2016-10-19 11:03] LABS: ANISOCYTOSIS 1+ (0-0); BURR CELLS 1+ (0-0); EOSINOPHILS % (M) 1 % (0-7); GIANT THROMBO% (M) 1 % (0-0); METAMYELOCYTES %M 1 % (0-0); MICROCYTOSIS 2+ (0-0); MONOCYTES % (M) 2 % (0-11); PLATELET ESTIMATE NORMAL; POIKILOCYTOSIS 2+ (0-0)
--- NOTE | 2016-10-19 13:15 | PN ---
Date/Time of Note Date/Time of Note DATE: 10/19/16 TIME: 13:14 Assessment/Plan VTE Prophylaxis VTE Prophylaxis Intervention: ambulation Lines/Catheters IV Catheter Type (from Nrs): Peripheral IV Assessment/Plan Chief Complaint/Hosp Course 1. Left breast CA, status post partial mastectomy with lymph node dissection. 2. Anxiety. Problems: Assessment/Plan 1. continue hydration 2. Continue clear liquid diet Subjective 24 Hr Interval Summary Constitutional: improved, no complaints Gastrointestinal: decreased appetite Neurologic: no complaints Exam/Review of Systems Vital Signs Vitals Vital Signs Date Time Temp Pulse Resp B/P Pulse Ox O2 Delivery O2 Flow Rate FiO2 10/19/16 07:46 98.8 70 18 107/68 100 10/18/16 18:33 Room Air Intake and Output 10/18/16 10/18/16 10/19/16 15:00 23:00 07:00 Intake Total 1000 ml Output Total 800 ml Balance 200 ml Exam Constitutional: alert, oriented ENMT: nl external ears & nose Neck: supple Respiratory: clear to auscultation Genitourinary - Female: nl external genitalia Extremities: other (left arm swelling) Results Result Diagram: 10/19/16 0420 10/19/16 0420 Results 24 hrs Laboratory Tests Test 10/18/16 13:50 10/18/16 15:00 10/19/16 04:20 White Blood Count 5.4 # 4.9 Red Blood Count 5.46 H 5.20 Hemoglobin 13.6 12.5 Hematocrit 40.6 39.7 Mean Corpuscular Volume 74.4 L 76.3 L Mean Corpuscular Hemoglobin 24.9 L 24.0 L Mean Corpuscular Hemoglobin Concent 33.5 31.5 L Red Cell Distribution Width 13.5 13.7 Platelet Count 198 # 181 Mean Platelet Volume 10.5 H 10.8 H Neutrophils % Segmented Neutrophils % (Manual) 68 68 Band Neutrophils % (Manual) 6 H 2 Lymphocytes % Lymphocytes % (Manual) 24 26 Monocytes % Monocytes % (Manual) 1 2 Eosinophils % Basophils % Basophils % (Manual) 1 Nucleated Red Blood Cells % 1 H 0.0 Neutrophils # Neutrophils # (Manual) 3.7 3.3 Band Neutrophils # 0.3 0.0 Absolute Lymphocytes (Manual) 1.2 1.2 Lymphocytes # Monocytes # Absolute Monocytes (Manual) 0.0 L 0.0 L Eosinophils # Basophils # Basophils # (Manual) 0.0 Nucleated Red Blood Cells # Platelet Estimate NORMAL NORMAL Polychromasia 1+ Poikilocytosis 1+ 2+ Anisocytosis 2+ 1+ Microcytosis 2+ 2+ Ovalocytes 1+ Sodium Level 141 140 Potassium Level 3.7 4.0 Chloride Level 102 102 Carbon Dioxide Level 26 25 Anion Gap 17 H 17 H Blood Urea Nitrogen 8 7 Creatinine 0.58 0.51 Glucose Level 95 98 Calcium Level 8.7 8.5 Total Bilirubin 0.5 1.0 Direct Bilirubin 0.00 0.00 Indirect Bilirubin 0.5 1.0 Aspartate Amino Transf (AST/SGOT) 29 27 Alanine Aminotransferase (ALT/SGPT) 42 42 Alkaline Phosphatase 95 74 Total Protein 7.5 6.5 # Albumin 4.1 3.5 Globulin 3.40 H 3.00 Albumin/Globulin Ratio 1.20 1.16 Lipase 536 H Urine Color STRAW Urine Clarity CLEAR Urine pH 8.0 Urine Specific [place] 1.004 Urine Ketones NEGATIVE Urine Nitrite NEGATIVE Urine Bilirubin NEGATIVE Urine Urobilinogen NEGATIVE Urine Leukocyte Esterase NEGATIVE Urine Hemoglobin NEGATIVE Urine Glucose NEGATIVE Urine Total Protein NEGATIVE Eosinophils % (Manual) 1 Metamyelocytes % (manual) 1 H Metamyelocytes # 0.0 Thrombocytosis 1 H Phosphorus Level 3.2 Magnesium Level 2.1 Medications Medications Current Medications Dextrose/Sodium Chloride (D5-1/2ns) 1,000 ml @ 100 mls/hr Q10H IV Last administered on 10/19/16 06:03; Admin Dose 100 MLS/HR; Start 10/18/16 at 16:39 Ondansetron HCl (Zofran Inj) 4 mg Q6H PRN IV NAUSEA AND/OR VOMITING Last administered on 10/19/16 09:20; Admin Dose 4 MG; Start 10/18/16 at 17:00 Metoclopramide HCl (Reglan) 10 mg Q6H PRN IV NAUSEA AND/OR VOMITING; Start 01/24 at 17:00 Acetaminophen (Tylenol Tab) 650 mg Q6H PRN PO PAIN LEVEL 1-3 OR FEVER; Start at 17:00 Acetaminophen/ Hydrocodone Bitart ([place] (5/325)) 1 tab Q6H PRN PO MODERATE PAIN LEVEL 4-6; Start 10/18/16 at 17:00 Morphine Sulfate (morphine) 2 mg Q4H PRN IV SEVERE PAIN LEVEL 7-10 Last administered on 10/18/16t 20:41; Admin Dose 2 MG; Start 10/18/16 at 17:00 Docusate Sodium (Colace) 100 mg Q12H PRN PO CONSTIPATION; Start 10/18/16 at 17: 00 Zolpidem Tartrate (Ambien) 5 mg QHS PRN PO SLEEP; Start 10/18/16 at 17:00 Famotidine (Pepcid) 20 mg Q12 PO ; Start 10/18/16 at 21:00 LEEANN LEMUS Oct 19, 2016 13:14
[2016-10-19 16:08] VITALS: BP 143/74; RESP 20
[2016-10-20] MEDS: DEXTROSE 5%-0.45% NACL 1,000 ML IV SCH ×4 (01:22→20:29)
[2016-10-20 02:34] VITALS: BP 137/72; RESP 18
[2016-10-20 08:12] VITALS: BP 95/57; RESP 19
[2016-10-20] MEDS: FAMOTIDINE 20 MG TAB PO SCH ×2 (08:48→20:29)
--- NOTE | 2016-10-20 17:24 | PN ---
Date/Time of Note Date/Time of Note DATE: 10/20/16 TIME: 17:22 Assessment/Plan VTE Prophylaxis VTE Prophylaxis Intervention: other Lines/Catheters IV Catheter Type (from Nrs): Peripheral IV Assessment/Plan Chief Complaint/Hosp Course 1. Abdominal pain, nausea, vomiting, likely status post chemotherapy on 10/15/2016 likely secondary to chemotherapy. The patient also had elevated lipase that could also contribute to the abdominal pain and could have mild pancreatitis, however, liver function tests are within normal limits. 2. History of left breast carcinoma, status post partial mastectomy with lymph node dissection. 3. History of anxiety. PLAN PO DIET AMBULATE Problems: Subjective 24 Hr Interval Summary Respiratory: no complaints Cardiovascular: no complaints Gastrointestinal: no complaints, No constipation, No decreased appetite, No diarrhea, No nausea Exam/Review of Systems Vital Signs Vitals Vital Signs Date Time Temp Pulse Resp B/P Pulse Ox O2 Delivery O2 Flow Rate FiO2 10/20/16 08:12 98.2 75 19 95/57 99 10/18/16 18:33 Room Air Intake and Output 10/19/16 10/19/16 10/20/16 15:00 23:00 07:00 Intake Total 900 ml 1350 ml Output Total 1150 ml Balance 900 ml 200 ml Exam Respiratory: clear to auscultation Cardiovascular: regular rate and rhythm Gastrointestinal: soft Musculoskeletal: nl extremities to inspection Extremities: normal pulses Results Result Diagram: 10/19/16 0420 10/19/16 0420 Medications Medications Current Medications Dextrose/Sodium Chloride (D5-1/2ns) 1,000 ml @ 100 mls/hr Q10H IV Last administered on 10/20/16 11:08; Admin Dose 100 MLS/HR; Start 10/18/16 at 16:39 Ondansetron HCl (Zofran Inj) 4 mg Q6H PRN IV NAUSEA AND/OR VOMITING Last administered on 10/19/16 09:20; Admin Dose 4 MG; Start 10/18/16 at 17:00 Metoclopramide HCl (Reglan) 10 mg Q6H PRN IV NAUSEA AND/OR VOMITING; Start 01/24 at 17:00 Acetaminophen (Tylenol Tab) 650 mg Q6H PRN PO PAIN LEVEL 1-3 OR FEVER; Start at 17:00 Acetaminophen/ Hydrocodone Bitart ([place] (5/325)) 1 tab Q6H PRN PO MODERATE PAIN LEVEL 4-6 Last administered on 10/20/16 15:14; Admin Dose 1 TAB; Start 01/24 at 17:00 Morphine Sulfate (morphine) 2 mg Q4H PRN IV SEVERE PAIN LEVEL 7-10 Last administered on 10/18/16 20:41; Admin Dose 2 MG; Start 10/18/16 at 17:00 Docusate Sodium (Colace) 100 mg Q12H PRN PO CONSTIPATION; Start 10/18/16 at 17: 00 Zolpidem Tartrate (Ambien) 5 mg QHS PRN PO SLEEP; Start 10/18/16 at 17:00 Famotidine (Pepcid) 20 mg Q12 PO Last administered on 10/20/16 08:48; Admin Dose 20 MG; Start 10/18/16 at 21:00 ROCHELLE ARGUELLO MD Oct 20, 2016 17:24
[2016-10-20 19:46] VITALS: BP 96/61; RESP 18
[2016-10-21 01:38] VITALS: BP 103/66; RESP 18
[2016-10-21] MEDS: DEXTROSE 5%-0.45% NACL 1,000 ML IV SCH ×2 (04:48→17:28)
[2016-10-21] MEDS: ACETAMINOPHEN 325 MG TAB PO PRN (07:36)
[2016-10-21] MEDS: FAMOTIDINE 20 MG TAB PO SCH ×2 (09:15→21:55)
[2016-10-21 19:11] VITALS: BP 103/66; RESP 18
--- NOTE | 2016-10-21 19:14 | PN ---
Date/Time of Note Date/Time of Note DATE: 10/21/16 TIME: 19:13 Assessment/Plan VTE Prophylaxis VTE Prophylaxis Intervention: other Lines/Catheters IV C[facility] Type ([facility]): Peripheral IV Assessment/Plan Chief Complaint/Hosp Course 1. Abdominal pain, nausea, vomiting, likely status post chemotherapy on 10/15/2016 likely secondary to chemotherapy. The patient also had elevated lipase that could also contribute to the abdominal pain and could have mild pancreatitis, however, liver function tests are within normal limits. 2. History of left breast carcinoma, status post partial mastectomy with lymph node dissection. 3. History of anxiety. PLAN PO DIET AMBULATE ck labs and c diff study Problems: Subjective 24 Hr Interval Summary Cardiovascular: no complaints Gastrointestinal: diarrhea (+) Exam/Review of Systems Vital Signs Vitals Vital Signs Date Time Temp Pulse Resp B/P Pulse Ox O2 Delivery O2 Flow Rate FiO2 10/21/16 19:11 98.8 92 18 103/66 97 10/18/16 18:33 Room Air Intake and Output 10/20/16 10/20/16 10/21/16 15:00 23:00 07:00 Intake Total 1000 ml 1520 ml 1750 ml Output Total 1200 ml 1250 ml Balance 1000 ml 320 ml 500 ml Exam Neck: supple Respiratory: clear to auscultation Cardiovascular: regular rate and rhythm Gastrointestinal: soft Musculoskeletal: nl extremities to inspection Extremities: normal pulses Results Result Diagram: 10/19/16 0420 10/19/16 0420 Medications Medications Current Medications Dextrose/Sodium Chloride (D5-1/2ns) 1,000 ml @ 100 mls/hr Q10H IV Last administered on 10/21/16 17:28; Admin Dose 100 MLS/HR; Start 10/18/16 at 16:39 Ondansetron HCl (Zofran Inj) 4 mg Q6H PRN IV NAUSEA AND/OR VOMITING Last administered on 10/19/16 09:20; Admin Dose 4 MG; Start 10/18/16 at 17:00 Metoclopramide HCl (Reglan) 10 mg Q6H PRN IV NAUSEA AND/OR VOMITING Last administered on 10/21/16 18:49; Admin Dose 10 MG; Start 10/18/16 at 17:00 Acetaminophen (Tylenol Tab) 650 mg Q6H PRN PO PAIN LEVEL 1-3 OR FEVER Last administered on 10/21/16 07:36; Admin Dose 650 MG; Start 10/18/16 at 17:00 Acetaminophen/ Hydrocodone Bitart ([place] (5/325)) 1 tab Q6H PRN PO MODERATE PAIN LEVEL 4-6 Last administered on 10/20/16 15:14; Admin Dose 1 TAB; Start 01/24 at 17:00 Morphine Sulfate (morphine) 2 mg Q4H PRN IV SEVERE PAIN LEVEL 7-10 Last administered on 10/18/16 20:41; Admin Dose 2 MG; Start 10/18/16 at 17:00 Docusate Sodium (Colace) 100 mg Q12H PRN PO CONSTIPATION; Start 10/18/16 at 17: 00 Zolpidem Tartrate (Ambien) 5 mg QHS PRN PO SLEEP; Start 10/18/16 at 17:00 Famotidine (Pepcid) 20 mg Q12 PO Last administered on 10/21/16 09:15; Admin Dose 20 MG; Start 10/18/16 at 21:00 ROCHELLE ARGUELLO MD Oct 21, 2016 19:14
[2016-10-22] MEDS: DEXTROSE 5%-0.45% NACL 1,000 ML IV SCH ×3 (00:48→17:10)
[2016-10-22 02:27] VITALS: BP 107/67; RESP 16
[2016-10-22 05:43] LABS: ALBUMIN 3.7 g/dl (3.3-4.9); ALBUMIN/GLOBULIN RATIO 1.15; BILIRUBIN,INDIRECT 0.3 mg/dl (0-1.1); BILIRUBIN,TOTAL 0.3 mg/dl (0.2-1.3); CALCIUM 8.9 mg/dl (8.4-10.2); CREATININE 0.48 mg/dl (0.44-1.00); POTASSIUM 3.9 mmol/L (3.5-5.1); TOTAL PROTEIN 6.9 g/dl (6.1-8.1)
[2016-10-22 07:42] VITALS: BP 104/67; RESP 18
--- NOTE | 2016-10-22 08:06 | RADRPT ---
AMENDMENT: 10/22/2016 8:06:38 AM Saul Marinelli MD The last sentence in the IMPRESSION should state: Bilateral kidneys are unremarkable. PROCEDURE: US Abdomen Complete. CLINICAL INDICATION: Abnormal LFTs, elevated creatinine TECHNIQUE: Multiple real-time images were acquired of the patient's abdomen and retroperitoneum ut ilizing a high resolution transducer. COMPARISON: None FINDINGS: The liver measures 16.0 cm and demonstrates mildly increased echogenicity and coarsened echotexture. There is no intrahepatic biliary ductal dilatation. The extrahepatic common bile duct measures 4 mm . The main portal vein is patent with proper directional flow. The gallbladder is absent. The visualized pancreas is unremarkable. The spleen measures 9.4 cm. The right kidney measures 10.1 cm. The left kidney measures 11.0 cm. There are no renal calculi or h ydronephrosis bilaterally. The visualized abdominal aorta and IVC are grossly unremarkable. IMPRESSION: The liver is top - normal in size and demonstrates mildly increased echogenicity and coarsened echot exture which are nonspecific, but can be seen with fatty infiltration as well as early chronic liver disease. The main portal vein is patent with proper directional flow. Status post cholecystectomy. Normal CBD. The right kidney is unremarkable. RPTAT: EE Physician Gennaro Date Time Electronically viewed and signed by Mikel Marinelli Physician on 10/22/2016 08:06 /
[2016-10-22] MEDS: FAMOTIDINE 20 MG TAB PO SCH ×2 (08:49→21:01)
[2016-10-22 14:20] VITALS: BP 102/66; RESP 18
[2016-10-22] MEDS: LOPERAMIDE 2 MG CAP PO PRN (18:12)
--- NOTE | 2016-10-22 18:52 | PN ---
Date/Time of Note Date/Time of Note DATE: 10/22/16 TIME: 18:51 Assessment/Plan VTE Prophylaxis VTE Prophylaxis Intervention: other Lines/Catheters IV Catheter Type (from Nrs): Peripheral IV Assessment/Plan Chief Complaint/Hosp Course 1. Abdominal pain, nausea, vomiting, likely status post chemotherapy on 10/15/2016 likely secondary to chemotherapy. The patient also had elevated lipase that could also contribute to the abdominal pain and could have mild pancreatitis, however, liver function tests are within normal limits. 2. History of left breast carcinoma, status post partial mastectomy with lymph node dissection. 3. History of anxiety. 4 pancreatitis PLAN PO DIET AMBULATE ck labs and c diff study neg creon Problems: Subjective 24 Hr Interval Summary Subjective hx not possible: other (diarrhea post po diet) Exam/Review of Systems Vital Signs Vitals Vital Signs Date Time Temp Pulse Resp B/P Pulse Ox O2 Delivery O2 Flow Rate FiO2 10/22/16 14:20 98.4 86 18 102/66 99 10/18/16 18:33 Room Air Intake and Output 10/21/16 10/21/16 10/22/16 15:00 23:00 07:00 Intake Total 100 ml 1550 ml Output Total 800 ml Balance 100 ml 750 ml Exam Neck: supple Respiratory: clear to auscultation Cardiovascular: regular rate and rhythm Gastrointestinal: soft Musculoskeletal: nl extremities to inspection Extremities: normal pulses Results Result Diagram: 10/19/16 0420 10/22/16 0436 Results 24 hrs Laboratory Tests Test 10/22/16 04:36 Sodium Level 140 Potassium Level 3.9 Chloride Level 102 Carbon Dioxide Level 24 Anion Gap 18 H Blood Urea Nitrogen 8 Creatinine 0.48 Glucose Level 100 Calcium Level 8.9 Total Bilirubin 0.3 Direct Bilirubin 0.00 Indirect Bilirubin 0.3 Aspartate Amino Transf (AST/SGOT) 59 H Alanine Aminotransferase (ALT/SGPT) 87 H Alkaline Phosphatase 96 Total Protein 6.9 Albumin 3.7 Globulin 3.20 Albumin/Globulin Ratio 1.15 Amylase Level 104 Lipase 284 Medications Medications Current Medications Dextrose/Sodium Chloride (D5-1/2ns) 1,000 ml @ 100 mls/hr Q10H IV Last administered on 10/22/16t 17:10; Admin Dose 100 MLS/HR; Start 10/18/16 at 16:39 Ondansetron HCl (Zofran Inj) 4 mg Q6H PRN IV NAUSEA AND/OR VOMITING Last administered on 10/19/16 09:20; Admin Dose 4 MG; Start 10/18/16 at 17:00 Metoclopramide HCl (Reglan) 10 mg Q6H PRN IV NAUSEA AND/OR VOMITING Last administered on 10/21/16 18:49; Admin Dose 10 MG; Start 10/18/16 at 17:00 Acetaminophen (Tylenol Tab) 650 mg Q6H PRN PO PAIN LEVEL 1-3 OR FEVER Last administered on 10/21/16 07:36; Admin Dose 650 MG; Start 10/18/16 at 17:00 Acetaminophen/ Hydrocodone Bitart ([place] (5/325)) 1 tab Q6H PRN PO MODERATE PAIN LEVEL 4-6 Last administered on 10/20/16 15:14; Admin Dose 1 TAB; Start 01/24 at 17:00 Morphine Sulfate (morphine) 2 mg Q4H PRN IV SEVERE PAIN LEVEL 7-10 Last administered on 10/18/16 20:41; Admin Dose 2 MG; Start 10/18/16 at 17:00 Docusate Sodium (Colace) 100 mg Q12H PRN PO CONSTIPATION; Start 10/18/16 at 17: 00 Zolpidem Tartrate (Ambien) 5 mg QHS PRN PO SLEEP; Start 10/18/16 at 17:00 Famotidine (Pepcid) 20 mg Q12 PO Last administered on 10/22/16 08:49; Admin Dose 20 MG; Start 10/18/16 at 21:00 Amylase/Lipase/ Protease (CREON (34h-61k-60k)) 1 cap TID PO ; Start 10/22/16 at 21:00 Loperamide HCl (Imodium Cap) 2 mg QID PRN PO DIARRHEA Last administered on 10/22 18:12; Admin Dose 2 MG; Start 10/22/16 at 17:30 ROCHELLE ARGUELLO MD Oct 22, 2016 18:52
[2016-10-22 19:14] VITALS: BP 103/63; RESP 18
[2016-10-22] MEDS: CREON (12k-38k-60k) 1 CAP PO SCH (21:01)
[2016-10-23 01:39] VITALS: BP 110/74; RESP 18
[2016-10-23] MEDS: DEXTROSE 5%-0.45% NACL 1,000 ML IV SCH ×2 (03:48→15:47)
[2016-10-23 06:00] LABS: ALBUMIN 3.6 g/dl (3.3-4.9); ALBUMIN/GLOBULIN RATIO 1.09; BILIRUBIN,INDIRECT 0.3 mg/dl (0-1.1); BILIRUBIN,TOTAL 0.3 mg/dl (0.2-1.3); CALCIUM 9.1 mg/dl (8.4-10.2); CREATININE 0.44 mg/dl (0.44-1.00); TOTAL PROTEIN 6.9 g/dl (6.1-8.1)
[2016-10-23 07:20] VITALS: BP 101/66; RESP 19
[2016-10-23] MEDS: CREON (12k-38k-60k) 1 CAP PO SCH ×2 (08:39→12:47)
[2016-10-23] MEDS: FAMOTIDINE 20 MG TAB PO SCH (08:40)
[2016-10-23] MEDS: LOPERAMIDE 2 MG CAP PO PRN (12:47)
[2016-10-23] MEDS ORDERED: DICYCLOMINE 10 MG CAP PO SCH (13:00)
[2016-10-23 13:40] VITALS: BP 119/72; RESP 20
--- NOTE | 2016-10-23 19:39 | PDOCDIS ---
Discharge Instructions CONDITION Patient Condition: Stable HOME CARE INSTRUCTIONS: Diet Instructions: Regular ACTIVITY: Activity Restrictions: Slowly Increase Activity Rest between Activity Avoid heavy lifting Bathing Restrictions: Shower FOLLOW UP/APPOINTMENTS Follow-up Plan f/u own pcp 1 wk f/u dr odonnell 1 wk ROCHELLE ARGUELLO MD Oct 23, 2016 19:39
[2016-10-23] MEDS ORDERED: LIPA1CAP4 PO (19:42)
[2016-10-23] MEDS ORDERED: FAMO-96 PO (19:42)
[2016-10-23] MEDS ORDERED: ONDA-43 PO (19:42)
[2016-10-23] MEDS ORDERED: DICY10CA60 PO (19:42)
[2016-10-23] MEDS: ACETAMINOPHEN 325 MG TAB PO PRN (20:46)
== END 2016-10-23 21:35 | disposition home or self-care (01) | DRG 440 ==
LOC: E/R 12:58 → MS1 15:54
PROVIDERS: ADMIT Internal Medicine; ATTEND Internal Medicine
DX: K85.30 Drug induced acute pancreatitis without necrosis or infection (principal); C50.912 Malignant neoplasm of unspecified site of left female breast; T45.1X5A Adverse effect of antineoplastic and immunosuppressive drugs, initial encounter; F41.9 Anxiety disorder, unspecified; R10.84 Generalized abdominal pain; R11.2 Nausea with vomiting, unspecified; R19.7 Diarrhea, unspecified
CPT/HCPCS: 36415; 76700; 80053; 81003; 82150; 83690; 83735; 84100; 85025; 87075; 93005; 96374; 96375; J2270; J2405; J2765; J7030; J7042

== ENCOUNTER 2017-03-16 20:25 | Emergency (ER) | END 2017-03-17 00:13 | disposition home or self-care (01) ==

== ENCOUNTER 2018-01-15 20:31 | Emergency (ER) | END 2018-01-16 01:04 | disposition left against medical advice (07) ==

== ENCOUNTER 2018-05-11 18:18 | Emergency (ER) | payer OTHER ==
[~2018-05-11] VITALS: Wt 65.0 kg
[~2018-05-11 18:18] MED LIST changes: +ACET500C5 PO; +DICY10CA40 PO; -DOCU-144 PO; +FAMO-96 PO; -HYDR-3498 PO; +HYDR-3601 PO; +LIPA1CAP4 PO; +ONDA4TAB13 PO; +ONDA4TAB14 PO; +ONDA8TAB14 PO; +OSEL75CA23 PO; -OXYC-279 PO; +PROM5SYR2 PO
[2018-05-11] MEDS ORDERED: ACETAMINOPHEN 500 MG TAB PO STA (22:41)
--- NOTE | 2018-05-11 22:48 | ERD ---
ER Documentation Chief Complaint Chief Complaint bib self, cc: right arm pain, no trauma, HPI 42-year-old female with history of cancer presents with right arm pain for the past several days. She denies any trauma to the arm. States that the pain is a shooting pain which starts from her neck and goes down the arm. She also states that she has a history of neck pain. denies any numbness or tingling or impaired range of motion. Denies any edema erythema or skin lesions. States that the pain is intermittent. Not taking any treatments. ROS All systems reviewed and are negative except as per history of present illness. Medications Home Meds Active Scripts Cyclobenzaprine Hcl* (Cyclobenzaprine Hcl*) 10 Mg Tablet, 5-10 MG PO TID for muscle spasm, #20 TAB Prov:DAYANARA VIDAL 05/11/18 Acetaminophen* (Tylophen*) 500 Mg Capsule, 2 CAP PO Q8H PRN for PAIN AND OR ELEVATED TEMP, #20 CAP Prov:DAYANARA VIDAL 05/11/18 Promethazine HCl/Codeine (Prometh-Codein 6.25-10 mg/5 ml) 5 Ml Syrup, 5 ML PO QID for 5 Days Prov:MELCHOR BAÑUELOS MD 03/16/17 Ondansetron (Ondansetron Odt) 8 Mg Tab.rapdis, 8 MG PO Q6H PRN for NAUSEA AND/OR VOMITING, #8 TAB Prov:MELCHOR BAÑUELOS MD 03/16/17 Oseltamivir Phosphate* (Tamiflu*) 75 Mg Capsule, 75 MG PO BID for 5 Days, CAP Prov:MELCHOR BAÑUELOS MD 03/16/17 Acetaminophen* (Tylophen*) 500 Mg Capsule, 1 CAP PO Q6H PRN for PAIN AND OR ELEVATED TEMP, #20 CAP Prov:MELCHOR BAÑUELOS MD 03/16/17 Famotidine* (Pepcid*) 20 Mg Tablet, 20 MG PO BID for 10 Days, #60 TAB Prov:ROCHELLE ARGUELLO MD 10/23/16 Ondansetron Hcl* (Zofran*) 4 Mg Tab, 4 MG PO Q4H PRN for NAUSEA AND OR VOMITING, #10 TAB Prov:ROCHELLE ARGUELLO MD 10/23/16 Amswjk-Prfokyzi-Gdprijp* (Creon DR* 12,000) 12,000 L-38,000-60,000 Unit Capsule.dr, 1 CAP PO TID for 10 Days Prov:ROCHELLE ARGUELLO MD 10/23/16 Dicyclomine HCl (Dicyclomine HCl) 10 Mg Capsule, 10 MG PO BID for 7 Days, CAP Prov:ROCHELLE ARGUELLO MD 10/23/16 Ondansetron (Ondansetron Odt) 4 Mg Tab.rapdis, 4 MG PO Q6H PRN for NAUSEA AND/OR VOMITING, #30 TAB Prov:MITCHELL SAMUELS MD 10/18/16 Hydrocodone Bit-Acetaminophen (Hydrocodone Bit-APAP) 5-325MG Tablet, 1 TAB PO Q4H PRN for MODERATE PAIN LEVEL 4-6, #30 TAB Prov:PATRICIA MARTÍNEZ MD 08/13/16 Allergies Allergies: Coded Allergies: Penicillins (Verified Allergy, Unknown, RASH, 10/18/16) aspirin (Verified Allergy, Unknown, RASH, 10/18/16) PMhx/Soc History of Surgery: Yes (gallbladder, tubal ligation, left breast partial mastectomy08/12/16) Anesthesia Reaction: No Hx Neurological Disorder: No Hx Respiratory Disorders: No Hx Cardiac Disorders: No Hx Psychiatric Problems: No Hx Miscellaneous Medical Probl: Yes (breast lump) Hx Alcohol Use: No Hx Substance Use: No Hx Tobacco Use: No Smoking Status: Never smoker FmHx Family History: No diabetes, No coronary disease, No other Physical Exam Vitals Vital Signs Date Temp Pulse Resp B/P (MAP) Pulse Ox O2 O2 Flow FiO2 Time Delivery Rate 05/12/18 97.5 90 18 104/56 94 Room Air 01:08 (72) 05/11/18 98.4 87 19 116/65 100 19:08 (82) Physical Exam Const: No acute distress Head: Atraumatic Eyes: Normal Conjunctiva ENT: Normal External Ears, Nose and Mouth. Neck: Full range of motion. No meningismus. no tenderness to palpation Resp: Clear to auscultation bilaterally Cardio: Regular rate and rhythm, no murmurs Ext: Right arm is nonerythematous or edematous without any edema, ecchymosis, or bony deformity. Skin is intact without any lesions. Compartments are soft and warm. There is no pallor or cyanosis. Range of motion, distal pulses, and distal sensation is intact. There is normal cap refill. Neur: Awake and alert Psych: Normal Mood and Affect Results 24 hrs Laboratory Tests Test 05/11/18 22:50 Creatine Kinase 72 IU/L Current Medications Medications Dose Sig/Usman Start Time Status Last (Trade) Ordered Route PRN Stop Time Admin Dose Reason Admin 1 tab ONCE ONCE 05/11/18 DC Acetaminophen PO 23:00 05/11/18 / 23:01 Hydrocodone Bitart ([place] (5/325)) 500 mg ONCE STAT 05/11/18 DC 05/11/18 Acetaminophen PO 22:41 05/11/18 22:45 (Tylenol 22:43 Tab) Procedures/MDM DIAGNOSTIC IMAGING REPORT Patient: CHEPE MCKEE : 1975 Age: 42 Sex: F MR #: [id number] DOS: 05/11/18 2237 Ordering MD: DAYANARA VIDAL Location: [facility] Room/Bed: PROCEDURE: US DVT. CLINICAL INDICATION: Right upper extremity pain TECHNIQUE: Multiple longitudinal and transverse images of the right upper extremity veins were obtained with cade scale and color Doppler imaging. 2D grayscale measurements with compression, color Doppler flow, and augmentation was performed. COMPARISON: No prior studies are available for comparison. FINDINGS: The right jugular, subclavian, axillary, brachial, cephalic basilic, radial and ulnar veins are normally compressible throughout. Color flow demonstrates normal filling of the vessel. Normal waveforms are visualized and there is normal response to augmentation. IMPRESSION: 1. No evidence of a deep vein thrombosis involving the right upper extremity. RPTAT: HMVK .Earl Haynes MD, MD Date Time Electronically viewed and signed by .Earl Haynes MD, on 05/12/2018 00:38 .K/ CC: DAYANARA VIDAL [phone] 42-year-old female with history of cancer presents with right arm pain for the past several days. She denies any trauma to the arm. States that the pain is a shooting pain which starts from her neck and goes down the arm. Denies any numbness or tingling or impaired range of motion. Denies any edema erythema or skin lesions. States that the pain is intermittent. Not taking any treatments. Some concern for possible DVT, so ultrasound was ordered which was negative. In addition CK was ordered and was negative. There is no history of trauma PE was within normal limits. Therefore I low suspicion for rhabdomyolysis, DVT, compartment syndrome, neurovascular compromise, or other emergent condition. Since patient also complained of neck pain and decided to give her a trial of muscle relaxant and NSAID to see if that possibly help. Patient discharged with strict ER precautions. Patient advised to follow up with PMD. All questions answered at discharge. Departure Diagnosis: Primary Impression: Pain of right arm Condition: Stable DAYANARA VIDAL May 11, 2018 22:48
[2018-05-11] MEDS ORDERED: CYCL10TA7 PO (22:50)
[2018-05-11] MEDS ORDERED: ACET500C5 PO (22:50)
[2018-05-11] MEDS ORDERED: HYDROCODONE/APAP (5/325) TAB PO ONE (23:00)
[2018-05-12 01:08] VITALS: BP 104/56; PULSE 90; RESP 18
== END 2018-05-12 01:10 | disposition home or self-care (01) ==
LOC: FTE 18:18
DX: M79.601 Pain in right arm (principal); Z85.3 Personal history of malignant neoplasm of breast
CPT/HCPCS: 82550; 93971; Z7502; Z7610